=== PATIENT | male | born 1960 | race Caucasian/White ===

== ENCOUNTER 2019-03-19 06:04 | Inpatient (IN) ==
[~2019-03-19 06:04] MED LIST: Vancomycin 1,000 MG, Sodium Chloride IRRigation 1,000 ML IR ONE
[2019-03-19] MEDS ORDERED: CeFAZolin Syr 2,000MG/20 ML 2,000 MG/20 ML SYRINGE IVPB ONE (06:52)
[2019-03-19] MEDS ORDERED: Ringers Solution, Lactated 1,000 ML IVC SCH (07:00)
[2019-03-19] MEDS ORDERED: Albuterol 2.5 MG/3 ML NEBULIZER IH PRN (07:04)
[2019-03-19] MEDS ORDERED: Ondansetron 4 MG/2 ML VIAL IVP ONE (07:04)
[2019-03-19] MEDS ORDERED: Acetaminophen IV 1,000 MG/100 ML INFUS..BTL IVPB ONE (07:04)
[2019-03-19] MEDS ORDERED: *HR* Promethazine 25 MG/ML VIAL IVP PRN (07:04)
[2019-03-19] MEDS ORDERED: *HR* HYDROmorphone (PF) 1 MG/ML SYRINGE IVP PRN (07:04)
[2019-03-19] MEDS ORDERED: Gabapentin 300 MG CAPSULE PO ONE (07:04)
[2019-03-19] MEDS ORDERED: Famotidine 20 MG/2 ML VIAL IVP ONE (07:04)
[2019-03-19] MEDS ORDERED: *HR* Labetalol 20 MG/4 ML SYRINGE IVP PRN ×2 (07:04→12:19)
[2019-03-19] MEDS ORDERED: *HR* OxyCODONE Immed Rel 5 MG TABLET PO PRN ×3 (07:04→12:19)
[2019-03-19] MEDS ORDERED: Heparin 1,000 UNITS/500 mL 500 ML ONE ×2 (07:31→08:11)
[2019-03-19] MEDS ORDERED: *HR* FentaNYL (PF) 100 MCG/2 ML VIAL ONE ×2 (08:02→08:06)
[2019-03-19] MEDS ORDERED: Lidocaine -MPF 2% 2 ML VIAL ONE ×2 (08:03→08:06)
[2019-03-19] MEDS ORDERED: *HR* Midazolam HCl 2 MG/2 ML VIAL ONE (08:03)
[2019-03-19] MEDS ORDERED: *HR* Succinylcholine 200 MG/10 ML VIAL IVP ONE (08:05)
[2019-03-19] MEDS ORDERED: *HR* Rocuronium Bromide 50 MG/5 ML VIAL ONE ×2 (08:05→09:59)
[2019-03-19] MEDS ORDERED: Dexamethasone 4 MG/ML VIAL ONE (08:06)
[2019-03-19] MEDS ORDERED: *HR* Propofol 200 MG/20 ML VIAL IVP ONE (08:06)
[2019-03-19] MEDS ORDERED: Ondansetron 4 MG/2 ML VIAL ONE (08:06)
[2019-03-19] MEDS ORDERED: Lidocaine HCL 4 ML Topical Solution (Laryng-O-Jet Kit Sterile Pak) TP ONE (08:09)
[2019-03-19] MEDS ORDERED: Vancomycin 1,000 MG VIAL ONE ×2 (08:11→08:44)
[2019-03-19] MEDS ORDERED: *HR* Phenylephrine 10 MG/ML VIAL ONE (08:17)
[2019-03-19] MEDS ORDERED: EPHEDrine 50 MG/ML VIAL ONE (08:18)
[2019-03-19] MEDS ORDERED: *HR* HYDROMORPHONE 2 MG/ML VIAL ONE (09:27)
[2019-03-19] MEDS ORDERED: *HR* Heparin 5,000 UNIT/ML VIAL ONE (09:38)
[2019-03-19] MEDS ORDERED: 0.9 % Sodium Chloride 1,000 ML IVC SCH (12:19)
[2019-03-19] MEDS ORDERED: *HR* HYDROcodone/Acet 5/325 mg TABLET PO PRN (12:19)
[2019-03-19] MEDS ORDERED: Naloxone 0.4 MG/ML INJ IVP PRN (12:19)
[2019-03-19] MEDS ORDERED: Acetaminophen 325 MG TABLET PO PRN ×2 (12:19)
[2019-03-19] MEDS ORDERED: Ondansetron 4 MG/2 ML VIAL IVP PRN (12:19)
[2019-03-19 13:05] LABS: Basophils % 0.3 %; Eosinophils % 0.3 %; Hematocrit 39.3 % (37.5-50.1); Immature Granulocytes % 0.4 % (0-4); Lymphocytes # 0.9 K/mcL (0.6-4.6); Lymphocytes % 7.5 %; Mean Corpuscular HGB Conc 33.1 g/dL (31.6-35.5); Mean Corpuscular Hemoglobin 30.4 pg (28.0-33.3); Mean Corpuscular Volume 91.8 fL (83.0-100.0); Mean Platelet Volume 8.7 fL (9.4-12.4); Monocytes # 0.2 K/mcL (0.0-1.3); Monocytes % 1.7 %; Neutrophils # 10.8 K/mcL (1.6-8.9); Platelet Count 347 K/mcL (140-400); Red Blood Count 4.28 M/mcL (4.19-5.50); Red Cell Distribution Width 13.5 % (11.5-14.5); Segmented Neutrophils % 89.8 %
[2019-03-19 13:20] LABS: INR 1.1; Prothrombin Time 12.6 Seconds (9.4-12.1)
[2019-03-19 13:21] LABS: Activated Partial Thrombo Time 91.9 Seconds (26.0-36.0)
[2019-03-19 13:34] LABS: Calcium 8.8 mg/dL (8.6-10.3)
[2019-03-19] MEDS: amLODIPine 5 MG TABLET PO SCH (13:37)
[2019-03-19] MEDS: Lisinopril 20 MG TABLET PO SCH (13:37)
[2019-03-19] MEDS: *HR* Metoprolol 5 MG/5 ML VIAL IVP SCH ×3 (13:37→23:04)
[2019-03-19] MEDS: *HR* HYDROcodone/Acet 5/325 mg TABLET PO PRN ×2 (13:42→20:16)
[2019-03-20 04:15] LABS: Basophils % 0.2 %; Hematocrit 36.4 % (37.5-50.1); Hemoglobin 12.2 g/dL (12.9-16.9); Immature Granulocytes % 0.4 % (0-4); Lymphocytes # 1.1 K/mcL (0.6-4.6); Mean Corpuscular HGB Conc 33.5 g/dL (31.6-35.5); Mean Corpuscular Hemoglobin 30.3 pg (28.0-33.3); Mean Corpuscular Volume 90.3 fL (83.0-100.0); Mean Platelet Volume 8.8 fL (9.4-12.4); Monocytes # 0.6 K/mcL (0.0-1.3); Monocytes % 6.4 %; Neutrophils # 8.2 K/mcL (1.6-8.9); Platelet Count 333 K/mcL (140-400); Red Blood Count 4.03 M/mcL (4.19-5.50); Red Cell Distribution Width 13.6 % (11.5-14.5)
[2019-03-20] MEDS: *HR* HYDROcodone/Acet 5/325 mg TABLET PO PRN (04:16)
[2019-03-20 04:38] LABS: BUN/Creatinine Ratio 21 (6-26); Blood Urea Nitrogen 28 mg/dL (6-20); Calcium 8.5 mg/dL (8.6-10.3); Carbon Dioxide 19 mEq/L (23-29); Chloride 108 mEq/L (98-107); Glucose 120 mg/dL (70-105); Osmolality,Calculated 293 (280-300); Potassium 4.8 mEq/L (3.5-5.1); Sodium 138 mEq/L (136-145); eGFR For African Americans > 60 (> 60); eGFR For Non-African Americans 56 (> 60)
[2019-03-20] MEDS ORDERED: *HR* Heparin 5,000 UNIT/ML VIAL SQ SCH ×2 (06:00)
[2019-03-20] MEDS: *HR* Metoprolol 5 MG/5 ML VIAL IVP SCH (06:09)
[2019-03-20] MEDS: Lisinopril 20 MG TABLET PO SCH (07:50)
[2019-03-20] MEDS: amLODIPine 5 MG TABLET PO SCH (07:51)
[2019-03-20 08:11] VITALS: BP 109/74
[2019-03-20] MEDS ORDERED: Metoprolol XL (24 HR) Succ 50 MG TAB.ER.24H PO SCH (09:00)
== END 2019-03-20 10:48 | disposition home or self-care (01) | DRG 181 ==
LOC: SAMDAY 06:04 → ICNU 12:02
PROVIDERS: ADMIT Surgery; ATTEND Surgery

== ENCOUNTER 2020-03-18 08:22 | Inpatient (IN) ==
[2020-03-18] MEDS ORDERED: Lidocaine HCL 4 ML Topical Solution (Laryng-O-Jet Kit Sterile Pak) TP ONE (08:45)
[2020-03-18] MEDS ORDERED: Dexamethasone 4 MG/ML VIAL ONE (08:45)
[2020-03-18] MEDS ORDERED: *HR* Rocuronium Bromide 50 MG/5 ML VIAL ONE (08:45)
[2020-03-18] MEDS ORDERED: Ondansetron 4 MG/2 ML VIAL ONE (08:45)
[2020-03-18] MEDS ORDERED: *HR* Succinylcholine 200 MG/10 ML VIAL IVP ONE (08:45)
[2020-03-18] MEDS ORDERED: Lidocaine -MPF 2% 2 ML VIAL ONE (08:45)
[2020-03-18] MEDS ORDERED: *HR* FentaNYL (PF) 100 MCG/2 ML VIAL ONE ×2 (08:46→12:13)
[2020-03-18] MEDS ORDERED: CeFAZolin Syr 2,000MG/20 ML 2,000 MG/20 ML SYRINGE IVPB ONE (08:46)
[2020-03-18] MEDS ORDERED: *HR* Propofol 200 MG/20 ML VIAL IVP ONE (08:46)
[2020-03-18] MEDS ORDERED: *HR* Heparin 5,000 UNIT/ML VIAL ONE (08:47)
[2020-03-18] MEDS ORDERED: Heparin 1,000 UNITS/500 mL 500 ML ONE ×2 (08:56→09:20)
[2020-03-18] MEDS: Ringers Solution, Lactated 1,000 ML IVC SCH ×2 (09:10→13:18)
[2020-03-18] MEDS ORDERED: Ondansetron 4 MG/2 ML VIAL IVP PRN ×2 (09:49→15:21)
[2020-03-18] MEDS ORDERED: *HR* OxyCODONE Immed Rel 5 MG TABLET PO PRN ×2 (09:49→15:21)
[2020-03-18] MEDS ORDERED: Promethazine 6.25 MG in Water for inj. (sterile) 20 ML IVPB PRN (09:49)
[2020-03-18] MEDS ORDERED: *HR* PHENYLEPHRINE 1,000 MCG/10 ML SYRINGE IVP ONE (10:23)
[2020-03-18] MEDS ORDERED: EPHEDrine 50 MG/ML VIAL ONE (10:29)
[2020-03-18] MEDS ORDERED: Vancomycin 1,000 MG, Sodium Chloride IRRigation 1,000 ML IR ONE (10:55)
[2020-03-18] MEDS ORDERED: Sugammadex Sodium 200 MG/2 ML VIAL IV ONE (12:16)
[2020-03-18] MEDS: *HR* HYDROmorphone PF 0.5 MG/0.5 ML SYRINGE IVP PRN ×2 (12:56→13:06)
[2020-03-18] MEDS ORDERED: *HR* Labetalol 20 MG/4 ML SYRINGE IVP PRN (15:21)
[2020-03-18] MEDS ORDERED: 0.9 % Sodium Chloride 1,000 ML IVC SCH (15:21)
[2020-03-18] MEDS ORDERED: *HR* HYDROcodone/Acet 5/325 mg TABLET PO PRN (15:21)
[2020-03-18] MEDS ORDERED: Acetaminophen 325 MG TABLET PO PRN (15:21)
[2020-03-18] MEDS ORDERED: Naloxone 0.4 MG/ML INJ IVP PRN (15:21)
[2020-03-18 17:26] VITALS: BP 142/78
[2020-03-18] MEDS ORDERED: *HR* Metoprolol 5 MG/5 ML VIAL IVP SCH (18:00)
[2020-03-18] MEDS ORDERED: CeFAZolin 2 GM/120 ML BAG IVPB SCH (19:00)
[2020-03-19] MEDS ORDERED: *HR* Heparin 5,000 UNIT/ML VIAL SQ SCH ×2 (06:00)
[2020-03-19] MEDS ORDERED: Metoprolol XL (24 HR) Succ 50 MG TAB.ER.24H PO SCH (09:00)
[2020-03-19] MEDS ORDERED: lisinopriL 20 MG TABLET PO SCH (09:00)
[2020-03-19] MEDS ORDERED: amLODIPine 5 MG TABLET PO SCH (09:00)
[2020-03-19] MEDS ORDERED: Cyanocobalamin (B-12) 1,000 MCG TABLET PO SCH (09:00)
== END 2020-03-18 18:52 | disposition home or self-care (01) | DRG 181 ==
LOC: SAMDAY 08:22 → 2NNU 15:31
PROVIDERS: ADMIT Surgery; ATTEND Surgery

== ENCOUNTER 2021-09-05 11:46 | Inpatient (IN) ==
[2021-09-05] MEDS ORDERED: Phenylephrine 500 MCG in 0.9 % Sodium Chloride 1 ML INTRACAVER PRN (11:49)
[2021-09-05] MEDS ORDERED: Lidocaine 1% 20 ML MDV INFILT ONE (12:00)
[2021-09-05] MEDS ORDERED: Naloxone 0.4 MG/ML INJ IVP PRN (14:44)
[2021-09-05] MEDS: cephALEXin 500 MG CAPSULE PO SCH ×2 (15:19→20:37)
[2021-09-05] MEDS: 0.9 % Sodium Chloride 1,000 ML IVC SCH (15:59)
[2021-09-05 16:48] LABS: Basophils # 0.1 K/mcL (0.0-0.2); Basophils % 0.6 %; Eosinophils % 0.4 %; Hematocrit 35.5 % (37.5-50.1); Hemoglobin 11.4 g/dL (12.9-16.9); Immature Granulocytes % 0.4 % (0-4); Lymphocytes # 1.1 K/mcL (0.6-4.6); Lymphocytes % 11.4 %; Mean Corpuscular HGB Conc 32.1 g/dL (31.6-35.5); Mean Corpuscular Hemoglobin 30.2 pg (28.0-33.3); Mean Corpuscular Volume 94.2 fL (83.0-100.0); Mean Platelet Volume 9.1 fL (9.4-12.4); Monocytes # 0.7 K/mcL (0.0-1.3); Monocytes % 6.9 %; Neutrophils # 7.6 K/mcL (1.6-8.9); Platelet Count 306 K/mcL (140-400); Red Blood Count 3.77 M/mcL (4.19-5.50); Red Cell Distribution Width 12.8 % (11.5-14.5); Segmented Neutrophils % 80.3 %; White Blood Count 9.5 K/mcL (4.3-11.1)
[2021-09-05 16:56] LABS: Prothrombin Time 11.5 Seconds (9.4-12.1)
[2021-09-05 16:58] LABS: Activated Partial Thrombo Time 29.2 Seconds (26.0-36.0)
[2021-09-05 17:02] LABS: Calcium 8.6 mg/dL (8.6-10.3); Potassium 5.4 mEq/L (3.5-5.1)
[2021-09-05] MEDS ORDERED: Gabapentin 300 MG CAPSULE PO PRN (18:19)
[2021-09-05] MEDS: cilostazoL 100 MG TABLET PO SCH (20:37)
[2021-09-06] MEDS ORDERED: *HR* OxyCODONE Immed Rel 5 MG TABLET PO ONE (00:16)
[2021-09-06] MEDS: 0.9 % Sodium Chloride 1,000 ML IVC SCH ×6 (00:49→22:03)
[2021-09-06 06:03] LABS: Basophils % 0.5 %; Eosinophils # 0.1 K/mcL (0.0-0.6); Eosinophils % 1.4 %; Hematocrit 30.3 % (37.5-50.1); Immature Granulocytes % 0.7 % (0-4); Lymphocytes # 1.8 K/mcL (0.6-4.6); Lymphocytes % 29.8 %; Mean Corpuscular HGB Conc 32.3 g/dL (31.6-35.5); Mean Corpuscular Hemoglobin 30.6 pg (28.0-33.3); Mean Corpuscular Volume 94.7 fL (83.0-100.0); Monocytes # 0.6 K/mcL (0.0-1.3); Monocytes % 10.2 %; Neutrophils # 3.4 K/mcL (1.6-8.9); Platelet Count 251 K/mcL (140-400); Red Cell Distribution Width 13.1 % (11.5-14.5); Segmented Neutrophils % 57.4 %; White Blood Count 5.9 K/mcL (4.3-11.1)
[2021-09-06 06:07] LABS: Hemoglobin 9.8 g/dL (12.9-16.9)
[2021-09-06 06:29] LABS: Calcium 8.1 mg/dL (8.6-10.3); Potassium 4.9 mEq/L (3.5-5.1)
[2021-09-06] MEDS: cephALEXin 500 MG CAPSULE PO SCH ×3 (08:17→20:58)
[2021-09-06] MEDS: cilostazoL 100 MG TABLET PO SCH ×2 (08:17→20:58)
[2021-09-06] MEDS ORDERED: Isovue-370 500 ML BOTTLE IVP ONE (08:21)
[2021-09-06] MEDS ORDERED: lisinopriL 10 MG TABLET PO SCH (09:00)
[2021-09-06] MEDS ORDERED: amLODIPine 5 MG TABLET PO SCH (09:00)
[2021-09-06] MEDS ORDERED: Metoprolol XL (24 HR) Succ 50 MG TAB.ER.24H PO SCH (09:00)
[2021-09-06] MEDS ORDERED: *HR* FentaNYL (PF) 100 MCG/2 ML VIAL ONE (11:50)
[2021-09-06] MEDS ORDERED: *HR* Midazolam HCl 2 MG/2 ML VIAL ONE (11:50)
[2021-09-06] MEDS ORDERED: Ondansetron 4 MG/2 ML VIAL ONE (11:50)
[2021-09-06] MEDS ORDERED: *HR* Rocuronium Bromide 50 MG/5 ML VIAL ONE (11:50)
[2021-09-06] MEDS ORDERED: Neosporin OINT 15 GM TUBE TP ONE (11:50)
[2021-09-06] MEDS ORDERED: Lidocaine HCL 4 ML Topical Solution (Laryng-O-Jet Kit Sterile Pak) TP ONE (11:50)
[2021-09-06] MEDS ORDERED: Lidocaine 1% 20 ML MDV ONE (11:50)
[2021-09-06] MEDS ORDERED: *HR* Propofol 200 MG/20 ML VIAL IVP ONE (11:51)
[2021-09-06] MEDS ORDERED: PHENYLEPHRINE INTRACAVER SCH (12:00)
[2021-09-06] MEDS ORDERED: SODIUM CHLORIDE 0.9% INTRACAVER SCH (12:00)
[2021-09-06] MEDS ORDERED: *HR* HYDROmorphone PF 0.5 MG/0.5 ML SYRINGE IVP PRN (12:28)
[2021-09-06] MEDS ORDERED: Albuterol 2.5 MG/3 ML NEBULIZER IH PRN (12:28)
[2021-09-06] MEDS ORDERED: *HR* Meperidine 25 MG/ML SYRINGE IVP PRN (12:28)
[2021-09-06] MEDS ORDERED: Ondansetron 4 MG/2 ML VIAL IVP PRN (12:28)
[2021-09-06] MEDS ORDERED: CeFAZolin Syr 2,000MG/20 ML 2,000 MG/20 ML SYRINGE IVPB ONE (12:30)
[2021-09-06] MEDS ORDERED: Gabapentin 300 MG CAPSULE PO PRN (13:17)
[2021-09-06] MEDS ORDERED: *HR* HYDROcodone/Acet 5/325 mg TABLET PO PRN (13:17)
[2021-09-06] MEDS ORDERED: Naloxone 0.4 MG/ML INJ IVP PRN (13:17)
[2021-09-06] MEDS ORDERED: Lidocaine -MPF 2% 2 ML VIAL ONE (13:57)
[2021-09-07] MEDS: 0.9 % Sodium Chloride 1,000 ML IVC SCH ×2 (00:37→08:13)
[2021-09-07 05:39] LABS: Hematocrit 26.7 % (37.5-50.1); Hemoglobin 8.5 g/dL (12.9-16.9); Mean Corpuscular HGB Conc 31.8 g/dL (31.6-35.5); Mean Corpuscular Volume 94.3 fL (83.0-100.0); Mean Platelet Volume 9.5 fL (9.4-12.4); Platelet Count 247 K/mcL (140-400); Red Blood Count 2.83 M/mcL (4.19-5.50); Red Cell Distribution Width 13.3 % (11.5-14.5); White Blood Count 7.8 K/mcL (4.3-11.1)
[2021-09-07 06:22] LABS: Potassium 5.1 mEq/L (3.5-5.1)
[2021-09-07] MEDS: cilostazoL 100 MG TABLET PO SCH (08:01)
[2021-09-07] MEDS: cephALEXin 500 MG CAPSULE PO SCH (08:01)
[2021-09-07] MEDS ORDERED: amLODIPine 5 MG TABLET PO SCH (09:00)
[2021-09-07] MEDS ORDERED: Metoprolol XL (24 HR) Succ 50 MG TAB.ER.24H PO SCH (09:00)
[2021-09-07] MEDS ORDERED: lisinopriL 10 MG TABLET PO SCH (09:00)
[2021-09-07 11:19] VITALS: BP 126/80; PULSE 70; TEMP 97.5; O2SAT 97
== END 2021-09-07 11:10 | disposition home or self-care (01) | DRG 710 ==
LOC: 3BNU 11:46 → EMEROOARM 11:46 → SUATTDRO 15:04 → 3BNU 15:53
PROVIDERS: ADMIT Internal Medicine; ATTEND Nurse Practitioner